=== PATIENT | male | born 1995 | race Caucasian/White ===

== ENCOUNTER 2021-12-10 23:57 | Outpatient (REF) | payer SELFPAY | END 2021-12-10 23:58 | disposition home or self-care (01) | LOC: LBN 23:57 | PROVIDERS: PCP Pediatrics Adolescent Medicine; Visit Provider Nurse Practitioner Family | DX: B99.8 Other infectious disease (principal); L02.415 Cutaneous abscess of right lower limb | CPT/HCPCS: 87077; 87070; 87186; 87205 ==

== ENCOUNTER 2022-04-15 17:34 | Outpatient (REF) | payer SELFPAY ==
[2022-04-15 21:33] LABS: TSH (W/Ref FT4) 1.18 uIU/mL (0.36-3.74)
== END 2022-04-15 17:35 | disposition home or self-care (01) ==
LOC: LBN 17:34
PROVIDERS: PCP Pediatrics Adolescent Medicine; Visit Provider Physician Assistant
DX: L02.416 Cutaneous abscess of left lower limb; R53.83 Other fatigue
CPT/HCPCS: 87077; 84443; 87070; 87186; 87205

== ENCOUNTER 2023-12-30 19:08 | Emergency (ER) | payer OTHER, SELFPAY ==
[2023-12-30 19:10] VITALS: BP 165/84; PULSE 96; RESP 16; TEMP 36.1; O2SAT 95
--- NOTE | 2023-12-30 19:30 | RT.EKG_ITS ---
APPROVED REPORT Exam: Resting ECG Reason for Exam: vertigo Patient Location: E HR:84 bpm ECG Measurements Heart Rate 84 AXIS IA 150 P 58 QRSd 73 QRS 57 QT 362 T 39 QTc 428 Conclusion Sinus rhythm...normal P axis, V-rate 60- 99 sinus rhtyhm, normal axis, normal intervals, non ischemic
--- NOTE | 2023-12-30 19:31 | ED.GENADUL_ITS ---
Discharge Plan Disposition Patient Disposition: Home Condition: Stable Discharge Details Clinical Impression: Neck pain on right side Primary Care Provider: Araceli De La Torre ED Provider: Andrea Hudson Discharge Instructions Instructions: Neck Pain (ED) Additional Instructions: You were seen in the emergency department for your right-sided neck pain he stated his acute on chronic with new symptoms of vertigo and visual changes. This is most likely a minor herniated disc in your neck that would be helped with a strict regimen of max dose Tylenol ibuprofen, combined with lidocaine patches and nonsedating muscle relaxer like methocarbamol. Ultimately need to be seen by an orthopedist or orthospine doctor and have an MRI of your cervical spine performed. You chose to leave AGAINST MEDICAL ADVICE, we were trying to workup possible vascular pathology for the abnormal symptoms of vertigo and visual changes with cervical radicular neck pain. This would be performed by getting some blood work done and performing a CTA of the head and neck to look at the vertebral arteries. Ultimately likely need to follow-up with physical therapy visits, the ER unfortunately cannot make long-term FMLA decisions as this is needed to be repeatedly evaluated by the same provider for ongoing restrictions and changes. He stated he had no primary care so I did place you on a list to get a primary care provider, you did have 1 registered in our system but someone should contact you from that office to arrange follow-up, we do not have an orthospine practice here at the hospital so I suggest to try to find a spinal orthopedic doctor in the area for your neck issues, in the meantime please try physical therapy. You refused methocarbamol a prescription muscle relaxer that can often help with muscle spasm of the neck. Please use therapeutic dosing of Tylenol (acetamenophen) & Advil (ibuprofen) in an alternating fashion as follows: Take 1000mg of Tylenol every 6 hours without missing doses- that is 4 times per day. Long-Term in between the Tylenol dosings, take 400-600mg of Advil also on a 6 hour schedule, that is also 4 times per day. The daily maximum dosing of Tylenol is 4000mg, and the daily maximum dosing of Advil is 2400mg. This is safe to do for weeks. Please note that some common cold medications & prescription pain medications may contain acetamenophen and you need to read OTC drug labels and factor that in to maximum daily dosings. Wear an [id number] lidocaine patch to the right side of the neck for 12 hours each day. Perform gentle heat and massage to the area Referrals: [facility] [Provider Group] [facility] [Provider Group] Araceli De La Torre [Primary Care Provider] - Discharge Data Discharge Date/Time-TO BE ENTERED AT DEPARTURE: 12/30/23 20:03 HPI General Date/Time Provider Initiated Documentation: 12/30/23 19:17 . HPI Narrative: 28 year-old male presents to ED today by POV/ambulating with a chief complaint of requesting FMLA paperwork for chronic neck pain issues with onset for years- has participated in many contact sports/martial arts. Quality described as R later neck pain, it flares up significantly, he endorses vertigo and visual changes with this pain sometimes, no radiation to weakness of R arm, midline neck pain, sensory deficits. Severity is described as severe. 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 Provoking factors include nothing specific- old sports injuries. Events leading up to the incident/Associated Symptoms: Patient has no PCP currently. Patient not anticoagulated. Related Data Allergies Allergy/AdvReac Type Severity Reaction Status Date / Time No Known Allergies Allergy Verified 12/30/23 19:16 General Stated Complaint: Dizzy/Sync NOEMI: 3 Review of Systems All systems reviewed & are unremarkable except as noted in HPI and below Exam Narrative Exam Narrative: GENERAL APPEARANCE: Well-nourished, non-toxic, awake and alert, atraumatic, no acute distress. SKIN: Warm, pink, dry, intact, without rashes/lesions/ulcerations. HEAD: Normocephalic, atraumatic, normal hair distribution for gender/age. EYES: Pupils PERRLA, EOMs intact without nystagmus, normal conjunctiva, no exudates on lids/lashes. ENT: Nares patent, no circumoral cyanosis, no facial swelling NECK: Supple, trachea midline, painless cervical ROM. LUNGS/CHEST: Non-labored respirations, normal A/P diameter, symmetrical expansion, no chest wall deformity HEART (CV/PV): No peripheral edema, no JVD. ABDOMEN: Soft, non-distended, no guarding. MSK: Normal ROM, no swelling/deformity to bilateral UEs or LEs, moving all extremities without weakness, no cyanosis, spine midline without tenderness, normal curvature, R lateral neck pain focal to trapezius muscles, no midline vertebral tenderness/crepitus/step-offs, no strength, sensation or ROM deficit of R UE. NEURO: Mental Status AAOx4 - alert to person, place, time, events No facial droop, no forehead involvement, no dysmetria with FNF. Motor: No focal weakness - strength 5/5 in bilateral UEs and LEs, proximal and distal, symmetric. Sensory: sensation intact to light touch globally. Gait normal: patient ambulated without ataxia into ED room. PSYCH: euthymic, cooperative, pleasant, appropriate speech Course Vital Signs Vital signs: Vital Signs Temperature 36.1 C L 12/30/23 19:10 Pulse 96 H 12/30/23 19:10 Respiratory Rate 16 12/30/23 19:10 Blood Pressure 165/84 H 12/30/23 19:10 Pulse Oximetry 95 12/30/23 19:10 Temperature 36.1 C L 12/30/23 19:10 Pulse 96 H 12/30/23 19:10 Respiratory Rate 16 12/30/23 19:10 Respiratory Effort Normal 12/30/23 19:15 Respiratory Depth Normal 12/30/23 19:15 Respiratory Pattern Normal 12/30/23 19:15 Blood Pressure 165/84 H 12/30/23 19:10 Pulse Oximetry 95 12/30/23 19:10 Oxygen Delivery Method Room Air 12/30/23 19:10 Oxygen Flow Rate 0 12/30/23 19:10 Medical Decision Making This dictation utilizes [id number] dictation software and may contain unedited grammatical errors. 28 y/o M presents to ED today with a chief complaint of acute on chronic lateral neck pain, known sports injuries- reports worsening with vertigo/dizziness and visual changes lately, denies R arm weakness/sensory deficits, has no PCP for follow-up, requesting [facility] extended leave paperwork. Patients' medical history: negative, otherwise healthy. Family and social history: history of martial arts and contact sports, otherwise noncontributory, denies family history of MS. Pertinent exam findings / vital signs include MSK: Normal ROM, no swelling/deformity to bilateral UEs or LEs, moving all extremities without weakness, no cyanosis, spine midline without tenderness, normal curvature, R lateral neck pain focal to trapezius muscles, no midline vertebral tenderness/crepitus/step-offs, no strength, sensation or ROM deficit of R UE, no dysmetria with FNF, no nystagmus. Differential / pathologies of concern include cervical radiculopathy, muscle spasm, vertebral artery dissection. Diagnostic studies of: -Had ordered CBC, CMP, Trop I, EKG, and CTA Head & Neck to ruleout vertebral dissection - patient left AMA prior to blood work and imaging. -EKG NSR, no ST changes, normal axis, good R wave progression Interventions of: -none, counseled on regimen for cervical muscle spasm, offered methocarbomol, patient refused. ED Course/Assessment/Plan: 28-year-old male presents with right lateral neck pain, has been ongoing since sports injuries in the past, requesting family medical leave paperwork be filled out, I did inform him that his new symptoms of dizziness or vertigo with visual changes was not normal for this condition though I do suspect only a cervical muscle spasm at this time I did discuss warranted rule out for vertebral artery dissection as well as a simple cardiac rule out with EKG and troponin. I advised the patient that the ER was not the correct setting for family medical leave paperwork to be filled out long-term and that he ultimately needs an MRI to fully diagnose the condition that is causing his symptoms and that would lead to actual objective limitations should he need any, I did advise him to seek an orthospine doctor, placed him on the list for primary care physician. Counseled the patient that we would not be ruling out potentially lethal pathology that could cause permanent deficit or of vertebral artery dissection, he chose to leave without the studies, he was of sound mind and body, otherwise young healthy male I do not suspect he is having this pathology but it was not definitively ruled out Findings not consistent with objective neurologic abnormality, patient only reported subjective vertigo and visual changes, not consistent with ACS. Disposition of Neck Pain on Right Side. Patient verbalized understanding of the plan and return to ED criteria and engaged in shared decision making. Medical Records Medical records reviewed: Yes I reviewed the patient's medical records. Quality:SDOH Health Related Social Needs: No Data to Display PFSH All Active Problems (Updated 12/30/23 @ 19:56 by KRISTIAN Dangelo) Neck pain on right side (Acute) Social History Smoking/Tobacco Use Status: Never Smoking risk assessment performed?: Yes Drug use: Never
--- NOTE | 2023-12-30 20:00 | NUR.NOTE ---
Pt plcaed o care management referral list to establish PCP .
== END 2023-12-30 20:03 | disposition home or self-care (01) ==
LOC: ER 20:15
PROVIDERS: Emergency Provider Physician Assistant; PCP Pediatrics Adolescent Medicine
DX: R42 Dizziness and giddiness (principal); M54.2 Cervicalgia; G89.29 Other chronic pain; Z53.29 Procedure and treatment not carried out because of patient's decision for other reasons
CPT/HCPCS: 80053; 93005; 99283; 84484; 85025; 93010; 99284